=== PATIENT | female | born 2000 | race Caucasian/White ===

== ENCOUNTER 2022-02-28 10:23 | Emergency (ER) | payer BC, MEDICAID ==
[2022-02-28] MEDS ORDERED: Ketorolac 60 MG/2 ML SDV IM ONE (10:55)
== END 2022-02-28 11:30 | disposition home or self-care (01) ==
LOC: KA.ED 10:23
DX: M43.6 Torticollis (principal)
CPT/HCPCS: 96372; 99283; J1885